=== PATIENT | female | born 1995 | race Two or more races ===

== ENCOUNTER 2024-09-18 22:14 | Emergency (ER) | payer MEDICAID, SELFPAY ==
[2024-09-18 22:17] VITALS: BMI 37.9
[2024-09-18 23:08] VITALS: BP 125/75; PULSE 129; RESP 18; TEMP 37.9; O2SAT 97
--- NOTE | 2024-09-18 23:19 | EKG_ITS ---
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
--- NOTE | 2024-09-18 23:20 | PD.EDRME ---
Rapid Medical Screening Exam RME Arrival date/time: 09/18/24 22:14 29-year-old female A1 presents emergency department complaining of lower abdomen and back cramping sore throat since this morning. patient reports is approximately 14 or 15 weeks . Chief Complaint: Abdominal Pain Time Seen by Provider: 09/18/24 23:14 Vital signs: Vital Signs Temperature 100.2 F 09/18/24 23:08 Pulse Rate 129 H 09/18/24 23:08 Respiratory Rate 18 09/18/24 23:08 Blood Pressure 125/75 09/18/24 23:08 Pulse Oximetry (%) 97 09/18/24 23:08 Oxygen Delivery Method Room Air 09/18/24 23:08 Vital signs reviewed by provider: Yes
[2024-09-19 00:05] LABS: Basophils % (Auto) 0 % (0-2.5); Eosinophils % (Auto) 0 % (0-10); Hematocrit 31.2 % (36.0-46.0); Hemoglobin 10.8 g/dL (12.0-16.0); Immature Granulocytes % (Auto) 1 % (0-0); Immature Granulocytes Auto 0.08 Thou/mm3 (0.00-0.00); Lymphocytes # (Auto) 1.1 Thou/mm3 (1.0-4.8); Lymphocytes % (Auto) 11 % (10-50); Mean Corpuscular HGB Conc 34.6 g/dl (31.0-37.0); Mean Corpuscular Hemoglobin 27.5 pg (25.0-35.0); Mean Corpuscular Volume 79 fL (80-100); Monocytes # (Auto) 0.5 Thou/mm3 (0.0-0.8); Monocytes % (Auto) 5 % (0-12); Neutrophils # (Auto) 8.4 Thou/mm3 (1.8-7.7); Neutrophils % (Auto) 83 % (37-80); Nucleated Red Blood Cell % 0 /100 WBC (0); Platelet Count 235 Thou/mm3 (140-440); RDW Standard Deviation 41.4 fL (36.4-46.3); Red Blood Count 3.93 Miln/mm3 (4.00-5.20)
--- NOTE | 2024-09-19 00:09 | XR_ITS ---
Examination: Complete OB ultrasound greater than 14 weeks Date and time of exam: September 19, 2024 0008 hrs. Indications: Lower back and pelvic pain today, early by history Findings: Viable intrauterine single fetus with single amniotic sac presentation breech Cardiac motion 158 BPM Placenta fundal anterior grade 1 Umbilical cord insertion seen Amniotic fluid adequate Cervix 4.2 cm Ovaries obscured by bowel gas. Composite estimated gestational age based on BPD, head circumference, abdominal circumference, femur length is 16 weeks 3 days Estimated weight 152.5 g. Survey of intracranial anatomy, spinal anatomy, abdominal anatomy, four-chamber heart performed with no abnormalities identified. Impression: Viable intrauterine gestation breech presentation.
[2024-09-19 00:19] LABS: Strep A Rapid Negative (Negative)
[2024-09-19 00:28] LABS: Alanine Aminotransferase 10 U/L (10-49); Albumin/Globulin Ratio 1.7 (1.2-2.2); Alkaline Phosphatase 84 U/L (46-116); Anion Gap 6 (7-16); Aspartate Amino Transferase 12 U/L (0-34); BUN/Creatinine Ratio 12 Ratio (12-20); Bilirubin,Total 0.6 mg/dL (0.3-1.2); Blood Urea Nitrogen 7 mg/dL (9-23); Calcium 9.9 mg/dL (8.3-10.6); Calcium (Corrected) 9.9 mg/dL (8.5-10.1); Carbon Dioxide 23.7 mMol/L (20.0-31.0); Chloride 104 mMol/L (98-107); Creatinine (Component) 0.6 mg/dL (0.6-1.3); Estimated Creatinine Clearance 158.2 mL/min (>60); Globulin 2.4 gm/dL (2.3-3.5); Glucose 147 mg/dL (74-106); Lipase 29 U/L (12-53); Osmolality,Calculated 269 (275-295); Potassium 3.6 mMol/L (3.4-5.1); Sodium 134 mMol/L (136-145); Total Protein 6.4 gm/dL (5.7-8.2); eGFR > 60 See Note
[2024-09-19 00:55] LABS: Collection Type, Urine Clean Catch
[2024-09-19 01:11] LABS: Bacteria,Urine Rare; Bilirubin,Urine Negative (Negative); Blood,Urine Negative (Negative); Clarity,Urine Clear (Clear/Hazy); Color,Urine Lt-Yellow (Lt Yel-Yel); Culture Indicated,Urine Not Indicated; Glucose, Urine 1+ (Negative); Ketones,Urine Negative (Negative); Leukocyte Esterase,Urine Negative (Negative); Nitrite,Urine Negative (Negative); PH,Urine 7.5 (5.0-7.0); Protein,Urine Negative (Neg - Trace); RBC,Urine 2 /hpf (0-3); Specific Gravity,Urine 1.009 (1.001-1.035); Squamous Epithelial Cell,Urine 3 /hpf (0-5); Urobilinogen,Urine Negative mg/dL (0.0-1.0); WBC,Urine 1 /hpf (0-5)
--- NOTE | 2024-09-19 01:31 | PRELIM_ITS ---
Obstetric ultrasound with Doppler. September 19, 2024 at 0008 hours Clinical history: Early viability. Comparison: No prior study is available for comparison. Findings:There is a gravid u terus with a live fetus in breech presentation of mean gestational age 16 weeks and 3 days (by biometry). cardiac activity is present at a heart rate of 158 beats per minute. The placenta is fundal/anterior in location, maturity grade 1. There is no evidence of placenta previa or retroplace ntal hemorrhage. Amniotic fluid is qualitatively adequate. Estimated weight is 153 grams+/- 23 grams. The cervix measures 4.2 cm, close.The ovaries were not visualized.Number abnormalities detect ed by Doppler.Impression:Gravid uterus with a single live fetus in breech presentation of mean gestat ional age 16 weeks 3 days. Report Electronically Signed By: Raimundo Mata 09/19/2024 1:30:23 AM [E ST]
[2024-09-19 01:47] LABS: Beta HCG,Quantitative 18343 mIU/mL (<5.0)
[2024-09-19 02:33] VITALS: BP 125/85; PULSE 115; RESP 17; TEMP 37.4; O2SAT 100
--- NOTE | 2024-09-19 02:35 | EDNOTE_ITS ---
ED Abdominal Pain RME/HPI General Chief Complaint: Abdominal Pain Stated complaint: PELVIC AND LOWER BACK PAIN, EYE/HANDS FEEL HOT Time seen by provider: 09/18/24 23:14 Arrival date/time: 09/18/24 22:14 29-year-old female A1 presents emergency department complaining of lower abdomen and back cramping sore throat since this morning. patient reports is approximately 14 or 15 weeks . Source: patient Mode of arrival: ambulatory Limitations: no limitations RME / HPI RME / HPI narrative: 09/18/24 22:14 29-year-old female A1 presents emergency department complaining of lower abdomen and back cramping sore throat since this morning. patient reports is approximately 14 or 15 weeks . Related Data Allergies Allergy/AdvReac Type Severity Reaction Status Date / Time No Known Allergies Allergy Verified 09/18/24 22:17 Review of Systems Review of Systems Systems Reviewed: All systems reviewed, normal except as documented Constitutional Constitutional: Reports system reviewed and no additional complaints, except as documented, Denies body ache(s), Denies chills and Denies fever(s) Eyes Eyes: Reports system reviewed and no additional complaints, except as documented and Denies change in vision ENT Ears, Nose, Mouth, and Throat: Reports system reviewed and no additional complaints, except as documented, Denies disequilibrium, Denies dizziness, Reports sore throat and Denies vertigo Cardiovascular Cardiovascular: Reports system reviewed and no additional complaints, except as documented, Denies chest pain and Denies dyspnea Respiratory Respiratory: Reports system reviewed and no additional complaints, except as documented, Denies chest congestion, Denies cough and Denies dyspnea Gastrointestinal Gastrointestinal: Reports system reviewed and no additional complaints, except as documented, Reports abdominal pain, Denies nausea and Denies vomiting Musculoskeletal Musculoskeletal: Reports system reviewed and no additional complaints, except as documented, Denies abnormal gait and Denies arthralgias Integumentary/Breasts Skin/Breast: Reports system reviewed and no additional complaints, except as documented, Denies erythema, Denies rash and Denies wounds Neurologic Neurologic: Reports system reviewed and no additional complaints, except as documented, Denies abnormal gait, Denies disequilibrium, Denies dizziness and Denies vertigo Past Medical History Social History SMOKING STATUS: Never smoker ED Exam General Limitations: Present no limitations General appearance: Present alert and in no apparent distress Head Head exam: Present atraumatic Eye Eye exam: Present normal appearance, PERRL and EOMI ENT ENT exam: Present normal exam, normal oropharynx and mucous membranes moist Expanded ENT Exam Throat exam: Present tonsillar erythema; Absent tonsillomegaly or tonsillar exudate Neck Neck exam: Present normal inspection, full ROM and trachea midline Chest Chest inspection: Present normal inspection and symmetric chest wall rise Respiratory Respiratory exam: Present normal lung sounds bilaterally Cardiovascular Cardiovascular exam: Present regular rate, normal rhythm and normal heart sounds Abdominal Exam Abdominal exam: Present soft and normal bowel sounds; Absent tenderness, rebound or tenderness at McBurney's Point Extremities Exam Extremities exam: Present normal inspection and full ROM Back Exam Back exam: Present normal inspection and full ROM Neurological Exam Neurological exam: Present alert, oriented X3 and CN II-XII intact Psychiatric Psychiatric exam: Present normal affect and normal mood Skin Skin exam: Present warm, dry, intact and normal color Course Quality Measures none Orders Category Date Time Status Bedside COVID-19 Antigen Test NOW Care 09/18/24 23:19 Completed Bedside Influenza A&B Antigen Test NOW Care 09/18/24 23:19 Completed EKG (ED ONLY) *Do not use* NOW Care 09/18/24 23:19 Completed EKG (ED Only) Stat Exams 09/18/24 23:19 Draft US OB >= 14 weeks Fetus Stat Exams 09/19/24 00:09 Taken ABO/RH Type Stat Lab 09/18/24 23:45 Completed Beta HCG,Quantitative Stat Lab 09/18/24 23:45 Completed CBC Stat Lab 09/18/24 23:45 Completed CMP [Comprehensive Metabolic Panel] Stat Lab 09/18/24 23:45 Completed Lipase Stat Lab 09/18/24 23:45 Completed Strep A Rapid Stat Lab 09/18/24 23:40 Completed Urinalysis, C/S if Indicated Stat Lab 09/19/24 00:48 Completed Acetaminophen Tab [Tylenol Tab] Med 09/19/24 02:36 Discontinued 650 mg PO X1 ONE Vital Signs Vital signs: Vital Signs Temperature 100.2 F 09/18/24 23:08 Pulse Rate 129 H 09/18/24 23:08 Respiratory Rate 18 09/18/24 23:08 Blood Pressure 125/75 09/18/24 23:08 Pulse Oximetry (%) 97 09/18/24 23:08 Oxygen Delivery Method Room Air 09/18/24 23:08 97% on room air within normal limits Abdominal Pain MDM MDM Narrative MDM Narrative:: 29-year-old female A1 presents emergency department complaining of lower abdomen and back cramping sore throat since this morning. patient reports is approximately 14 or 15 weeks . Patient denies any nausea vomiting, vaginal bleeding, diarrhea, chest pain, cough, shortness of breath, or any other associated symptom. Patient appears nontoxic and hemodynamically stable. CBC was unremarkable for any leukocytosis and hemoglobin was 10.8. CMP was unremarkable. Beta-hCG greater than 18,000. Ultrasound findings viable intrauterine gestation approximately 16 weeks with heart tones. Patient is abdomen is soft and nontender. Patient discharged home and instructed to follow-up with primary care provider and [employer] S[employer] CLERK upon discharge. Instructed to return to emergency department for any worsening symptoms or as needed. Patient data External records reviewed:: [facility] previous records Clinical information provided by:: patient Social determinants that could affect healthcare access:: none Patient has the following chronic illnesses:: See chart How is presenting disease/condition affected by chronic disease/condition?: uneffected by Evaluation data The following diagnostics were reviewed and interpreted by me:: lab results and radiology exam(s) Lab and/or radiology exams considered but not ordered:: Ordered Interpretation Summary: Interpreted by me Medications / Prescriptions Medications or Prescriptions considered but not ordered:: Ordered Medication administrations:: Medication Administration History Discontinued Medications Acetaminophen (Acetaminophen 325 Mg Tablet) 650 mg PO X1 ONE Stop: 09/19/24 02:37 Last Admin: 09/19/24 02:48 Dose: 650 mg Documented By: MC Given Consultations Consultation(s) initiated? (list below): No Diagnosis Differential diagnosis abdominal pain: abdominal pain, acute appendicitis, constipation, diverticulitis and gastroenteritis Most likely diagnosis given after review of the tests above:: Abdominal pain Viral syndrome Admission Indicated Admission indicated?: not indicated Admission Request Was there a request for admission?: No Disposition Plan Disposition Plan: Discharge Discharge Attestation Discharge Attestation: The patient and all family members were given an opportunity to ask questions and understood the discharge instructions. Discharge instructions specifically effects, indications for sooner follow up or return to the emergency department, and the expected course of current diagnosis. Patient condition: Stable Discharge Plan Plan Patient Disposition: HOME (Self Care) Disposition Comment: Stable Prescriptions/Referrals Referrals: Jamel Jones MD [Primary Care Provider] - In 1 week Problem List Clinical Impression: Abdominal pain, Viral syndrome Patient/Caregiver Discharge Instructions Discharge Activity: activity as tolerated Education Materials: Abdominal Pain, ED Abdominal Pain Unkn Cause Fem Additional Instructions: Follow-up with primary care provider and [employer] S[employer] CLERK in 24 to 48 hours. Return to the emergency department for any worsening symptoms or as needed. Print Language: Portuguese Stand Alone Forms: Diane Award Info., Patient Portal Info Letter Attestation MD Attestation The patient was seen by the midlevel practitioner. I, the co-signing physician, was present during the entire ER visit. While I did not physically examine the patient, I was available for consultation as needed.
[2024-09-19] MEDS: ACETAMINOPHEN 325 MG TABLET 650 MG PO (02:48)
[2024-09-19 02:49] VITALS: PULSE 107
== END 2024-09-19 02:53 | disposition home or self-care (01) ==
PROVIDERS: Emergency Provider Emergency Medicine; PCP Family Medicine
DX: O98.512 Other viral diseases complicating pregnancy, second trimester (principal); B34.9 Viral infection, unspecified; O26.892 Other specified pregnancy related conditions, second trimester; O99.891 Other specified diseases and conditions complicating pregnancy; R10.9 Unspecified abdominal pain; R10.2 Pelvic and perineal pain; R00.0 Tachycardia, unspecified; M54.50 Low back pain, unspecified; Z3A.16 16 weeks gestation of pregnancy
CPT/HCPCS: 36415; 76805; 80053; 81001; 83690; 84702; 85025; 86900; 86901; 87400; 87651; 87811; 93005; 99284; A9270

== ENCOUNTER 2025-01-27 18:20 | Observation (INO) | payer MEDICAID, SELFPAY ==
[2025-01-27] VITALS (29 sets, daily range): BP systolic 112; BP diastolic 66; PULSE 86–100; RESP 18–98; TEMP 37.1; O2SAT 97–100; BMI 41.1
[2025-01-27] MEDS: RINGERS LACTATED 1000 ML 1,000 ML 999 ML IV (19:18)
[2025-01-27 19:29] LABS: Collection Type, Urine Clean Catch; RBC,Urine 0 /hpf (0-3)
[2025-01-27 19:32] LABS: Basophils % (Auto) 0 % (0-2.5); Eosinophils % (Auto) 1 % (0-10); Hematocrit 31.7 % (36.0-46.0); Hemoglobin 10.6 g/dL (12.0-16.0); Immature Granulocytes % (Auto) 1 % (0-0); Immature Granulocytes Auto 0.06 Thou/mm3 (0.00-0.00); Lymphocytes # (Auto) 1.5 Thou/mm3 (1.0-4.8); Lymphocytes % (Auto) 18 % (10-50); Mean Corpuscular HGB Conc 33.4 g/dl (31.0-37.0); Mean Corpuscular Hemoglobin 26.6 pg (25.0-35.0); Mean Corpuscular Volume 79 fL (80-100); Monocytes # (Auto) 0.4 Thou/mm3 (0.0-0.8); Monocytes % (Auto) 5 % (0-12); Neutrophils % (Auto) 75 % (37-80); Nucleated Red Blood Cell % 0 /100 WBC (0); Platelet Count 258 Thou/mm3 (140-440); RDW Standard Deviation 43.6 fL (36.4-46.3); Red Blood Count 3.99 Miln/mm3 (4.00-5.20)
[2025-01-27 19:48] LABS: Bacteria,Urine Rare; Bilirubin,Urine Negative (Negative); Blood,Urine Negative (Negative); Clarity,Urine Turbid (Clear/Hazy); Color,Urine Yellow (Lt Yel-Yel); Glucose, Urine Negative (Negative); Ketones,Urine 3+ (Negative); Leukocyte Esterase,Urine Negative (Negative); Nitrite,Urine Negative (Negative); Protein,Urine 1+ (Neg - Trace); Specific Gravity,Urine 1.031 (1.001-1.035); Squamous Epithelial Cell,Urine 2 /hpf (0-5); WBC,Urine 2 /hpf (0-5)
[2025-01-27 20:02] LABS: Alanine Aminotransferase 10 U/L (10-49); Albumin, Serum 3.7 gm/dL (3.5-5.0); Albumin/Globulin Ratio 1.6 (1.2-2.2); Alkaline Phosphatase 112 U/L (46-116); Anion Gap 10 (7-16); Aspartate Amino Transferase 15 U/L (0-34); BUN/Creatinine Ratio 20 Ratio (12-20); Bilirubin,Total 0.5 mg/dL (0.3-1.2); Blood Urea Nitrogen 10 mg/dL (9-23); Calcium 9.3 mg/dL (8.3-10.6); Calcium (Corrected) 9.5 mg/dL (8.5-10.1); Carbon Dioxide 23.9 mMol/L (20.0-31.0); Chloride 107 mMol/L (98-107); Creatinine (Component) 0.5 mg/dL (0.6-1.3); Estimated Creatinine Clearance 184.1 mL/min (>60); Globulin 2.3 gm/dL (2.3-3.5); Glucose 96 mg/dL (74-106); Osmolality,Calculated 280 (275-295); Potassium 3.9 mMol/L (3.4-5.1); Sodium 141 mMol/L (136-145); eGFR > 60 See Note
== END 2025-01-27 21:05 | disposition home or self-care (01) ==
PROVIDERS: Admitting Provider Obstetrics & Gynecology; PCP Student in an Organized Health Care Education/Training Program; Visit Provider Obstetrics & Gynecology
DX: Z34.83 Encounter for supervision of other normal pregnancy, third trimester (principal); Z3A.34 34 weeks gestation of pregnancy
CPT/HCPCS: 36415; 59025; 59899; 80053; 81001; 85025; J7120

== ENCOUNTER 2025-02-01 19:39 | Outpatient (CLI) | payer MEDICAID, SELFPAY ==
[2025-02-01] VITALS (17 sets, daily range): BP systolic 113–120; BP diastolic 58–74; PULSE 85–98; RESP 17–99; TEMP 36.8; O2SAT 98–99; BMI 40.5
--- NOTE | 2025-02-01 19:26 | XR_ITS ---
Examination: Biophysical profile, ultrasound Date and time of exam: February 01, 2025, 1936 hours INDICATIONS: Insulin requiring diabetic Technique: Multiple transabdominal sonographic images of the pelvis abdomen obtained. Attention is directed to the breathing movement, gross body movement, amniotic fluid volume and tone. Findings: Amniotic fluid index 5.3 cm Total biophysical profile is 8 of 8. breathing movement is 2. Gross body movement is 2. tone is 2. Qualitative amniotic fluid volume is 2 Impression: Biophysical profile is 8 of 8.
== END 2025-02-01 21:30 | disposition home or self-care (01) ==
LOC: CNST 19:41 → S4SX 19:41
PROVIDERS: Referring Provider Student in an Organized Health Care Education/Training Program; Visit Provider Student in an Organized Health Care Education/Training Program
DX: Z34.83 Encounter for supervision of other normal pregnancy, third trimester (principal); Z36.9 Encounter for antenatal screening, unspecified; Z3A.35 35 weeks gestation of pregnancy
CPT/HCPCS: 59025; 76819

== ENCOUNTER 2025-02-06 18:47 | Observation (INO) | payer MEDICAID, SELFPAY ==
[2025-02-06] VITALS (7 sets, daily range): BP systolic 113–140; BP diastolic 64–87; PULSE 92–102; RESP 17–98; TEMP 36.9; BMI 40.9
--- NOTE | 2025-02-06 18:47 | XR_ITS ---
Examination: Biophysical profile, ultrasound Date and time of exam: February 06, 2025, 2009 hours INDICATIONS: Diagnosis type 2 diabetes Technique: Multiple transabdominal sonographic images of the pelvis abdomen obtained. Attention is directed to the breathing movement, gross body movement, amniotic fluid volume and tone. Findings: Amniotic fluid index 7.7 cm Total biophysical profile is 8 of 8. breathing movement is 2. Gross body movement is 2. tone is 2. Qualitative amniotic fluid volume is 2 Impression: Biophysical profile is 8 of 8.
== END 2025-02-06 22:07 | disposition home or self-care (01) ==
LOC: S4S1 19:14 → S4SX 19:41
PROVIDERS: Admitting Provider Obstetrics & Gynecology; Referring Provider Obstetrics & Gynecology; Visit Provider Obstetrics & Gynecology
DX: O24.113 Pre-existing type 2 diabetes mellitus, in pregnancy, third trimester (principal); E11.9 Type 2 diabetes mellitus without complications; Z3A.36 36 weeks gestation of pregnancy
CPT/HCPCS: 59025; 59899; 76819; G0378

== ENCOUNTER 2025-02-08 19:06 | Outpatient (CLI) | payer MEDICAID, SELFPAY ==
[2025-02-08 19:06] VITALS: BP 126/66; PULSE 90; RESP 18; RESP 98; TEMP 37.1; BMI 40.7
[2025-02-08 19:41] VITALS: BP 121/63; PULSE 93
--- NOTE | 2025-02-08 19:49 | XR_ITS ---
Examination: Biophysical profile, ultrasound Date and time of exam: February 08, 2025, 2021 hours INDICATIONS: Diagnosis type 2 diabetes Technique: Multiple transabdominal sonographic images of the pelvis abdomen obtained. Attention is directed to the breathing movement, gross body movement, amniotic fluid volume and tone. Findings: Amniotic fluid index 8.9 cm Total biophysical profile is 8 of 8. breathing movement is 2. Gross body movement is 2. tone is 2. Qualitative amniotic fluid volume is 2 Impression: Biophysical profile is 8 of 8.
== END 2025-02-08 21:27 | disposition home or self-care (01) ==
LOC: CNST 19:13 → S4SX 19:26
PROVIDERS: Referring Provider Obstetrics & Gynecology; Visit Provider Obstetrics & Gynecology
DX: Z34.83 Encounter for supervision of other normal pregnancy, third trimester (principal); Z36.9 Encounter for antenatal screening, unspecified; Z3A.36 36 weeks gestation of pregnancy
CPT/HCPCS: 59025; 76819

== ENCOUNTER 2025-02-13 19:48 | Observation (INO) | payer MEDICAID, SELFPAY ==
--- NOTE | 2025-02-13 18:46 | XR_ITS ---
Examination: Biophysical profile, ultrasound Date and time of exam: February 13, 2025 1829 hrs. Indications: Diagnosis type 2 diabetes Technique: Multiple transabdominal sonographic images of the pelvis abdomen obtained. Attention is directed to the breathing movement, gross body movement, amniotic fluid volume and tone. Findings: Amniotic fluid index 8.9 cm Total biophysical profile is 8 of 8. breathing movement is 2. Gross body movement is 2. tone is 2. Qualitative amniotic fluid volume is 2 Impression: Biophysical profile is 8 of 8.
[2025-02-13 19:22] VITALS: BP 128/72; PULSE 94
[2025-02-13 19:36] VITALS: BP 128/72; PULSE 94; RESP 100; RESP 16; TEMP 36.8; BMI 42.0
== END 2025-02-13 20:25 | disposition home or self-care (01) ==
LOC: S4S1 20:11 → S4SX 02-14 06:44
PROVIDERS: Admitting Provider Obstetrics & Gynecology; Referring Provider Obstetrics & Gynecology; Visit Provider Obstetrics & Gynecology
DX: Z34.83 Encounter for supervision of other normal pregnancy, third trimester (principal); Z36.9 Encounter for antenatal screening, unspecified; Z3A.37 37 weeks gestation of pregnancy
CPT/HCPCS: 59025; 59899; 76819

== ENCOUNTER 2025-02-16 18:22 | Observation (INO) | payer MEDICAID, SELFPAY ==
[2025-02-16 18:09] VITALS: BP 128/74; PULSE 81
[2025-02-16 18:11] VITALS: BP 128/74; PULSE 81; RESP 16; RESP 98; TEMP 36.9
[2025-02-16 18:12] VITALS: RESP 16; TEMP 36.9; O2SAT 98; BMI 40.5
--- NOTE | 2025-02-16 18:23 | XR_ITS ---
Examination: Biophysical profile, ultrasound Date and time of exam: February 16, 2025 0719 hrs. Indications: Diagnosis gestational diabetes Technique: Multiple transabdominal sonographic images of the pelvis abdomen obtained. Attention is directed to the breathing movement, gross body movement, amniotic fluid volume and tone. Findings: Amniotic fluid index 6.8 cm Total biophysical profile is 8 of 8. breathing movement is 2. Gross body movement is 2. tone is 2. Qualitative amniotic fluid volume is 2 Impression: Biophysical profile is 8 of 8.
== END 2025-02-16 19:58 | disposition home or self-care (01) ==
LOC: CNST 18:40 → S4SX 19:55
PROVIDERS: Admitting Provider Obstetrics & Gynecology; Referring Provider Obstetrics & Gynecology; Visit Provider Obstetrics & Gynecology
DX: O24.414 Gestational diabetes mellitus in pregnancy, insulin controlled (principal); Z3A.37 37 weeks gestation of pregnancy
CPT/HCPCS: 59025; 59899; 76819; G0378

== ENCOUNTER 2025-02-20 17:26 | Outpatient (CLI) | payer MEDICAID, SELFPAY ==
--- NOTE | 2025-02-20 17:40 | XR_ITS ---
Examination: Biophysical profile, ultrasound Date and time of exam: February 20, 2025 1741 hrs. Indications: Diagnosis gestational diabetes Technique: Multiple transabdominal sonographic images of the pelvis abdomen obtained. Attention is directed to the breathing movement, gross body movement, amniotic fluid volume and tone. Findings: Amniotic fluid index 6.3 cm Total biophysical profile is 8 of 8. breathing movement is 2. Gross body movement is 2. tone is 2. Qualitative amniotic fluid volume is 2 Impression: Biophysical profile is 8 of 8.
[2025-02-20 17:51] VITALS: PULSE 100; O2SAT 98
[2025-02-20 17:52] VITALS: BP 125/61; PULSE 101; PULSE 104; RESP 18; RESP 98; TEMP 37.1
[2025-02-20 17:53] VITALS: BMI 40.5
[2025-02-20 17:56] VITALS: PULSE 101; O2SAT 100
[2025-02-20 18:01] VITALS: PULSE 104; O2SAT 98
[2025-02-20 18:06] VITALS: PULSE 101; O2SAT 98
[2025-02-20 18:11] VITALS: PULSE 99; O2SAT 100
== END 2025-02-20 18:25 | disposition home or self-care (01) ==
LOC: S4S1 17:29 → S4SX 17:30
PROVIDERS: Referring Provider Student in an Organized Health Care Education/Training Program; Visit Provider Student in an Organized Health Care Education/Training Program
DX: O24.419 Gestational diabetes mellitus in pregnancy, unspecified control (principal); Z3A.38 38 weeks gestation of pregnancy
CPT/HCPCS: 59025; 76819

== ENCOUNTER 2025-02-21 05:01 | Inpatient (IN) | payer MEDICAID, SELFPAY ==
[2025-02-21] VITALS (60 sets, daily range): BP systolic 0–130; BP diastolic 0–82; PULSE 66–104; RESP 12–20; TEMP 36.6–37.1; O2SAT 96–100; BMI 39.3
[2025-02-21] MEDS: RINGERS LACTATED 1000 ML 1,000 ML 125 ML IV (05:54)
[2025-02-21 06:24] LABS: Basophils % (Auto) 0 % (0-2.5); Eosinophils # (Auto) 0.1 Thou/mm3 (0.0-0.5); Eosinophils % (Auto) 1 % (0-10); Hematocrit 32.8 % (36.0-46.0); Hemoglobin 10.9 g/dL (12.0-16.0); Immature Granulocytes % (Auto) 1 % (0-0); Immature Granulocytes Auto 0.04 Thou/mm3 (0.00-0.00); Lymphocytes # (Auto) 1.9 Thou/mm3 (1.0-4.8); Lymphocytes % (Auto) 22 % (10-50); Mean Corpuscular HGB Conc 33.2 g/dl (31.0-37.0); Mean Corpuscular Hemoglobin 26.8 pg (25.0-35.0); Mean Corpuscular Volume 81 fL (80-100); Monocytes # (Auto) 0.6 Thou/mm3 (0.0-0.8); Monocytes % (Auto) 6 % (0-12); Neutrophils # (Auto) 5.9 Thou/mm3 (1.8-7.7); Neutrophils % (Auto) 69 % (37-80); Nucleated Red Blood Cell % 0 /100 WBC (0); Platelet Count 246 Thou/mm3 (140-440); RDW Standard Deviation 44.3 fL (36.4-46.3); Red Blood Count 4.06 Miln/mm3 (4.00-5.20); White Blood Count 8.6 Thou/mm3 (3.6-11.0)
[2025-02-21 07:03] LABS: Syphilis Nonreactive (Nonreactive)
--- NOTE | 2025-02-21 07:41 | PD.LDHP ---
Documentation for date of: 02/21/25 OB Labor/Induct. HPI History of Present Illness : 4 Term pregnancies: 2 pregnancies: 0 Living children: 2 History of Abortions: Spontaneous and Elective: 1 History of sections: Yes History of : No Date of last menstrual period: 05/02/24 Gestational age based on last menstrual period: 42 History of present illness: 30-year-old 4 para 2-0-1-2 at 38 weeks and 1 day admitted for repeat low-transverse . Patient desires sterilization at the same time and has signed consent. Patient had previous x 1 and a failed [place] and repeat low-transverse in the second . care is complicated by type 2 diabetes. Patient was started on insulin however was noncompliant in blood sugar readings which remained elevated and spite of starting insulin. Patient is morbidly obese as well. Patient was having her care with another provider and in late third trimester she started having care with me so far patient has 3 visits with me until now. History of Present Dating criteria: LMP confirmed by 2nd trimester US Adequate Care: Yes Abnormal ultrasound findings: Anatomy scan within normal limits, anterior placenta no previa mentioned low suspicion of placenta accreta spectrum Labs Labs: Negative: Hepatitis B, HIV, Chlamydia, Gonorrhea and Group Beta Strep Past Medical History Surgical History SURGICAL: Positive Section Meds Home Medications and Allergies Home Medications ?Medication ?Instructions ?Recorded ?Confirmed ?Type aspirin 81 mg chewable tablet 81 mg PO .q day 01/27/25 02/20/25 History vit no.95-ferrous 1 tab PO QDAY 01/27/25 02/20/25 History fumarate 28 mg-folic acid 800 mcg tablet () insulin glargine 100 unit/mL (3 5 unit subcut BID 02/06/25 02/20/25 History mL) subcutaneous pen (Lantus Solostar U-100 Insulin) Allergies Allergy/AdvReac Type Severity Reaction Status Date / Time No Known Allergies Allergy Verified 02/21/25 05:00 OB Exam Physical Exam Vital signs: Temp Pulse Resp BP Pulse Ox O2 Del Method 98.7 F 80 18 130/70 99 Room Air 02/21/25 06:00 02/21/25 07:27 02/21/25 06:28 02/21/25 07:27 02/21/25 07:41 02/21/25 06:28 Constitutional Constitutional: no acute distress Routine HEENT Exam Head: Present normocephalic and atraumatic Eye: Present EOMI and PERRL ENT: Present mucous membranes moist Routine Neck Exam Neck: Present supple and trachea midline Routine Cardiovascular Exam Cardiovascular: Present RRR Routine Abdominal Exam Abdominal: Present soft and normoactive bowel sounds Detailed Labor and Delivery Exam Dilation (cm): Closed Comments: heart tone category 1 Occasional contractions Not in labor Routine Extremities Exam Extremities: Present full ROM Routine Skin Exam Skin: Present intact, dry and warm Routine Neurological Exam Neurological: Present alert, oriented X3 and CN II-XII intact Routine Psychiatric Exam Psychiatric: Present normal affect and normal thought process OB Results Labs 02/21/25 06:04 Labs: Short CBC 02/21/25 Range/Units 06:04 WBC 8.6 (3.6-11.0) Thou/mm3 Hgb 10.9 L (12.0-16.0) g/dL Hct 32.8 L (36.0-46.0) % Plt Count 246 (140-440) Thou/mm3 Impressions Impression: 30-year-old 4 para 2-0-1-2 with previous 2 C-sections admitted for a repeat low-transverse Desires sterilization Hemoglobin anemia starting 10.9 g/dL Anatomy scan within normal, anterior placenta low suspicion PAS Type 2 diabetes on insulin, noncompliant with blood sugar measurements, uncontrolled blood sugars NIPT within normal limits OB Assessment & Plan Additional Plan Additional Plan Comment: Admitted for repeat low-transverse Antibiotic prophylaxis DVT prophylaxis
[2025-02-21] MEDS: METOCLOPRAMIDE INJ 5 MG/ML VIAL 2 ML 10 MG IVP (08:19)
[2025-02-21] MEDS: FAMOTIDINE INJ 10 MG/ML VIAL 2 ML 20 MG IV (08:19)
[2025-02-21] MEDS: ceFAZolin/D5W 2 GM IV 2 GM/100 ML BAG IV (08:19)
--- NOTE | 2025-02-21 09:31 | PD.GYNPROC ---
Operative Note - US MARKETING DIRECTOR Procedure Date of procedure: 02/21/25 Procedure Performed: Repeat low-transverse Bilateral salpingectomy Indication: Previous x 2 Type 2 diabetes on insulin, uncontrolled Desires sterilization Pre-Op diagnosis: Same Post-Op diagnosis: Same Anesthesia type: Spinal Procedure description: Informed consent was obtained and the patient was taken to the operating room.? Identity was confirmed by double identifiers and she was placed on the operating table.The abdomen and perineum were prepped in the usual sterile fashion and a Llanos catheter was placed to continuous drainage.? Sterile drapes were applied.??A Pfannenstiel skin incision was made with a scalpel and carried to the subcutaneous fat up to the rectus fascia.? The rectus fascia was incised on either side of the midline and the incisions were extended bilaterally.? The fascia was gently dissected off the ventral surface of the rectus muscle both superiorly and inferiorly. extensive adhesiolysis was done between musle , peritoneum. Carefully a peritioneal window created hysterotomy incision made and extended bluntly with finger. Rupture of membranes revealed clear fluid. The baby was found vertex presentation and was delivered via vertex. Nuchal cord x 2, true knot seen the umbilical cord , was doubly clamped, divided and the was handed over to the waiting team. The placenta delivered by controlled cord traction . The interior of the uterus was now thorougly cleaned of all blood and debris and membranes.?The? hysterotomy was closed using 0 vicryl suture in double layers. Once the repair was completed the hysterotomy was inspected, was noted to be adequately hemostatic. Bilateral salpingectomy done, hemostasis maintained the rectus fascia was repaired using Vicryl 0 in a running fashion.? The subcutaneous layer was now, approximated with 3-0 vicryl in double layers.? All bleeding points were cauterized using the Bovie.?The skin was closed using 4-0 Monocryl in a subcuticular fashion.? The skin was cleaned and a sterile dressing was applied. The patient was now undraped, the abdomen and back were thoroughly cleaned and she was now transferred to the recovery room in a stable Estimated blood loss (ml): 400 Surgical staff Operation Date: 02/21/25 07:45 Case Staff CURTAIN STRETCHER: Johnny Escalante RN First Assistant: Liz Mistry Diagnosis Problem List Completed Was Problem List Reviewed/Reconciled?: Yes
--- NOTE | 2025-02-21 09:38 | OBDSUM_ITS ---
Data ([facility]) Data Hx Section: Yes : 4 Para: 2 Term: 2 : 0 : 1 Delivery Data ([facility]) Labor Data ROM Date: 02/21/25 ROM Time: 08:53 Rupture Type: AROM Amniotic Fluid: Clear Delivery Data Labor Onset Stage 1 Date: 02/21/25 Labor Onset Stage 1 Time: 08:53 Labor Onset Stage 2 Date: 02/21/25 Labor Onset Stage 2 Time: 08:53 Delivery Date: 02/21/25 Delivery Time: 08:54 Gestational age (weeks): 38 Gestational age (days): 1 Placenta Delivery Date: 02/21/25 Placenta Delivery Time: 08:55 Delivered by: Danielle Servin Delivery nurse: Deepti Montemayor Other staff at delivery: Nurse Other staff at delivery: Nurse Other staff at delivery: Other staff at delivery: Christen Moore Other staff at delivery: Leilani Godfrey Other staff at delivery: chaps Delivery Method Delivery: Delivery Type: Primary Anesthesia Type Primary Anesthesia: Spinal EBL Estimated blood loss (ml): 400 [place] Data ([facility]ada) Data Gender: Female Infant Weight Grams: 3525 1 Minute Total: 8 5 Minute Total: 9
[2025-02-21] MEDS: OXYTOCIN in NS 20 units 20 UNIT/1,000 ML BAG 125 UNIT IV ×2 (09:46→18:20)
[2025-02-21] MEDS: IBUPROFEN TAB 400 MG TABLET 800 MG PO ×2 (13:48→23:33)
[2025-02-21 14:01] LABS: Basophils % (Auto) 0 % (0-2.5); Eosinophils # (Auto) 0.1 Thou/mm3 (0.0-0.5); Eosinophils % (Auto) 1 % (0-10); Hematocrit 32.7 % (36.0-46.0); Hemoglobin 10.8 g/dL (12.0-16.0); Immature Granulocytes % (Auto) 1 % (0-0); Immature Granulocytes Auto 0.07 Thou/mm3 (0.00-0.00); Lymphocytes # (Auto) 1.4 Thou/mm3 (1.0-4.8); Lymphocytes % (Auto) 14 % (10-50); Mean Corpuscular Hemoglobin 26.8 pg (25.0-35.0); Mean Corpuscular Volume 81 fL (80-100); Monocytes # (Auto) 0.6 Thou/mm3 (0.0-0.8); Monocytes % (Auto) 6 % (0-12); Neutrophils # (Auto) 7.7 Thou/mm3 (1.8-7.7); Neutrophils % (Auto) 78 % (37-80); Nucleated Red Blood Cell % 0 /100 WBC (0); Platelet Count 227 Thou/mm3 (140-440); RDW Standard Deviation 43.8 fL (36.4-46.3); Red Blood Count 4.03 Miln/mm3 (4.00-5.20); White Blood Count 9.9 Thou/mm3 (3.6-11.0)
[2025-02-21] MEDS: ACETAMINOPHEN 325 MG TABLET 650 MG PO (19:09)
[2025-02-21] MEDS: INSULIN GLARGINE (Lantus) 5 UNIT/0.05 ML (PER 5 UNITS) 4 UNIT SC (20:48)
[2025-02-22 03:44] VITALS: BP 106/69; PULSE 85; RESP 19; TEMP 36.7; O2SAT 98
[2025-02-22] MEDS: ACETAMINOPHEN 325 MG TABLET 650 MG PO ×2 (05:32→16:17)
[2025-02-22 07:24] VITALS: BP 120/78; PULSE 76; RESP 16; TEMP 37.1; O2SAT 98
--- NOTE | 2025-02-22 07:55 | ESPR_ITS ---
Subjective Subjective Interval history: Post-op day #1 repeat section. incision pain responding to oral medication. Tolerating oral intake. breast feeding Exam Vital Signs Temp Pulse Resp BP Pulse Ox O2 Del Method 98.0 F 85 19 106/69 98 Room Air 02/22/25 03:44 02/22/25 03:44 02/22/25 03:44 02/22/25 03:44 02/22/25 03:44 02/22/25 03:44 Routine Abdominal Exam Abdominal: Present soft (Uterine fundus firm, below umbilicus. dressing dry.) Routine Extremities Exam Comments: no phlebitis, no pedal edema Objective Labs 02/21/25 13:47 Labs: Laboratory Results - last 24 hr 02/21/25 02/21/25 06:04 13:47 WBC 9.9 RBC 4.03 Hgb 10.8 L Hct 32.7 L MCV 81 MCH 26.8 MCHC 33.0 RDW Std Deviation 43.8 Plt Count 227 Neut % (Auto) 78 Lymph % (Auto) 14 [place] % (Auto) 6 Eos % (Auto) 1 Baso % (Auto) 0 Neut # (Auto) 7.7 Lymph # (Auto) 1.4 [place] # (Auto) 0.6 Eos # (Auto) 0.1 Baso # (Auto) 0.0 Immature Gran # (Auto) 0.07 H Absolute Nucleated RBC 0.00 Immature Gran % 1 H Nucleated RBC % 0 Blood Type O Positive Antibody Screen NEGATIVE Assessment & Plan Assessment Comment Assessment comment: progress as expected post-op day #1 Plan Comment Plan Comment: ambulate Time Spent With Patient Time: Total time spent is greater than 50% in coordination of care (as documented) at patient's floor/unit and/or counseling patient: Time with patient: less than 15 minutes
--- NOTE | 2025-02-22 08:00 | PD.LDPPPRG ---
Subjective Subjective Interval history: Incisional pain responded to oral analgesics. voiding after removal of Llanos catheter. Breast feeding Exam Vital Signs Temp Pulse Resp BP Pulse Ox O2 Del Method 98.0 F 85 19 106/69 98 Room Air 02/22/25 03:44 02/22/25 03:44 02/22/25 03:44 02/22/25 03:44 02/22/25 03:44 02/22/25 03:44 Detailed Abdominal Exam Comments: Uterine fundus , firm, below umbilicus. dressing dry. lochia light Routine Extremities Exam Comments: no phlebitis at IV site. no calf tenderness Objective Labs 02/21/25 13:47 Labs: Laboratory Results - last 24 hr 02/21/25 13:47 WBC 9.9 RBC 4.03 Hgb 10.8 L Hct 32.7 L MCV 81 MCH 26.8 MCHC 33.0 RDW Std Deviation 43.8 Plt Count 227 Neut % (Auto) 78 Lymph % (Auto) 14 [place] % (Auto) 6 Eos % (Auto) 1 Baso % (Auto) 0 Neut # (Auto) 7.7 Lymph # (Auto) 1.4 [place] # (Auto) 0.6 Eos # (Auto) 0.1 Baso # (Auto) 0.0 Immature Gran # (Auto) 0.07 H Absolute Nucleated RBC 0.00 Immature Gran % 1 H Nucleated RBC % 0 Assessment & Plan Assessment Comment Assessment comment: post-op day # 1 repeat section under spinal anesthesia Plan Comment Plan Comment: Increase ambulation Time Spent With Patient Time: Total time spent is greater than 50% in coordination of care (as documented) at patient's floor/unit and/or counseling patient:
[2025-02-22] MEDS: INSULIN GLARGINE (Lantus) 5 UNIT/0.05 ML (PER 5 UNITS) 3 UNIT SC (09:01)
[2025-02-22] MEDS: IBUPROFEN TAB 400 MG TABLET 800 MG PO ×2 (09:01→20:18)
[2025-02-22 12:24] VITALS: BP 128/85; PULSE 89; RESP 16; TEMP 36.7; O2SAT 98
[2025-02-22 20:14] VITALS: BP 112/76; PULSE 87; RESP 17; TEMP 37.2; O2SAT 98
[2025-02-22] MEDS: INSULIN GLARGINE (Lantus) 5 UNIT/0.05 ML (PER 5 UNITS) 4 UNIT SC (21:57)
[2025-02-23 04:15] VITALS: BP 119/78; PULSE 85; RESP 16; TEMP 37; O2SAT 98
[2025-02-23] MEDS: IBUPROFEN TAB 400 MG TABLET 800 MG PO (07:07)
[2025-02-23 08:22] VITALS: BP 121/86; PULSE 90; RESP 17; TEMP 36.9; O2SAT 99
[2025-02-23] MEDS: INSULIN GLARGINE (Lantus) 5 UNIT/0.05 ML (PER 5 UNITS) 3 UNIT SC (09:01)
--- NOTE | 2025-02-23 11:33 | ESDS_ITS ---
DS: Providers Provider Date of admission: 02/21/25 05:01 Primary care physician: Jamel Jones MD Admitting Provider: Danielle Servin MD Attending Provider on Admission: Jarrod Yin MD Consults: 02/21/25 07:46 Referral Routine Comment: Attending Provider on DC: Jarrod Yin MD Discharging Provider: Jarrod Yin MD DS: Diagnosis Problem List Completed Was Problem List Reviewed/Reconciled?: Yes Summary/Hosp Course Brief History: 30-year-old 4 para 2-0-1-2 at 38 weeks and 1 day admitted for repeat low-transverse . Patient desires sterilization at the same time and has signed consent. Patient had previous x 1 and a failed [place] and repeat low-transverse in the second . care is complicated by type 2 diabetes. Patient was started on insulin however was noncompliant in blood sugar readings which remained elevated and spite of starting insulin. Patient is morbidly obese as well. Patient was having her care with another provider and in late third trimester she started having care with me so far patient has 3 visits with me until now. Peripartum Data Delivery Method: Low Transverse Procedures: Procedures Operation Date: 02/21/25 07:45 Actual Procedure Side Surgeon p w/tubal OB Danielle Servin MD complications: none Status at Discharge Functional status at discharge: independent ambulation Overall status at discharge: patient is back to baseline Time Spent with Patient Time attestation: Total time spent providing and/or coordinating discharge services: Time spent: Less than 30 minutes Specific discharge activities: AVOID HEAVY EXERTION Exam Vital Signs Temp Pulse Resp BP Pulse Ox O2 Del Method 98.5 F 90 17 121/86 H 99 Room Air 02/23/25 08:22 02/23/25 08:22 02/23/25 08:22 02/23/25 08:22 02/23/25 08:22 02/23/25 08:22 Routine Abdominal Exam Abdominal: Present soft and surgical scars Comments: INCISION SITE INTACT Routine Extremities Exam Comments: NO CALF TENDERNESS OR PEDAL EDEMA Discharge Plan Plan Patient Disposition: HOME (Self Care) Disposition Comment: HOME FOR SELF CARE Prescriptions/Referrals Prescriptions/Med Rec: New ibuprofen 600 mg tablet 800 mg PO Q8H PRN (Reason: See Comments) Qty: 15 0RF No Action aspirin 81 mg tablet,chewable 81 mg PO .q day Patient Comments: TAKE 1 TABLET BY MOUTH EVERY DAY PNV cmb#95-ferrous fumarate-FA [] 28 mg iron- 800 mcg tablet 1 tab PO QDAY insulin glargine [Lantus Solostar U-100 Insulin] 100 unit/mL (3 mL) insulin pen 5 unit subcut BID Referrals: Jamel Jones MD [Primary Care Provider] - Patient/Caregiver Discharge Instructions Meds to Beds: Yes (IBUPROFEN 800 MG TID PRN PAIN) Discharge Activity: activity as tolerated Other Discharge Activity Instructions:: Justin nicole Dr. en sheryl semana Education Materials: Nutrition While , , C Section Dc Print Language: Armenian Stand Alone Forms: Diane Award Info., Patient Portal Info Letter Discharge Order Discharge Orders: Discharge (Routine); Ordered 02/23/25 Ordered By: Jarrod Yin Planned Discharge Date 02/23/25 Social History adopted: No caregiver/support person: Yes foster care: No household members: significant other lives independently: Yes Hx Recent Travel: No Tobacco Smoking Status: Never smoker
== END 2025-02-23 13:35 | disposition home or self-care (01) | DRG 539 ==
LOC: S4SX 07:29 → S4NX 08:31
PROVIDERS: Admitting Provider Student in an Organized Health Care Education/Training Program; PCP Family Medicine; Visit Provider Obstetrics & Gynecology
PROC: 0UL70ZZ Occlusion of Bilateral Fallopian Tubes, Open Approach (ICD-10-PCS; CPT 59514; principal; 2025-02-21 07:30)
DX: O34.211 Maternal care for low transverse scar from previous cesarean delivery (principal); Z3A.38 38 weeks gestation of pregnancy; Z37.0 Single live birth; Z30.2 Encounter for sterilization; O24.12 Pre-existing type 2 diabetes mellitus, in childbirth; E66.01 Morbid (severe) obesity due to excess calories; O99.214 Obesity complicating childbirth; O69.81X0 Labor and delivery complicated by cord around neck, without compression, not applicable or unspecified; Z91.199 Patient's noncompliance with other medical treatment and regimen due to unspecified reason
CPT/HCPCS: 36415; 85025; 86780; 86850; 86880; 86900; 86901; A4649; J0689; J1815; J2274; J2371; J2590; J2765; J3010; J3490; J7120; A9270; J2270